=== PATIENT | male | born 1950 | race Hispanic/Latino ===

== ENCOUNTER 2021-09-16 11:49 | Emergency (ER) | payer MEDICARE ==
[2021-09-16] MEDS ORDERED: SODIUM CHLORIDE 0.9% 1000 ML 1,000 ML IV ONE ×2 (12:10→13:55)
--- NOTE | 2021-09-16 12:16 | Emergency Department Report ---
ED General Adult HPI - General Chief complaint: Weakness Stated complaint: COVID LIKE SYMPTOMS Time Seen by Provider: 09/16/21 12:05 Source: patient Mode of arrival: Ambulatory Limitations: No Limitations - History of Present Illness Initial comments: Patient is 70 years old male with history of major depression and vascular dementia. Patient presented to the ER from a local psychiatric facility for evaluation of generalized weakness. Patient also stated that he want to be tested for COVID-19 since he has been having some coughing and congestion r ecently. Patient denied any shortness of breath, fever or chills. He also denied any chest pain. No abdominal pain, nausea or vomiting. He also denied any urinary symptoms. - Related Data Home Medications Medication Instructions Recorded Confirmed Last Taken Cyanocobalamin (Vitamin B-12) 500 mcg PO DAILY 08/18/21 08/18/21 Unknown [Vitamin B-12] Methylphenidate HCl 5 mg PO DAILY 08/18/21 08/18/21 Unknown Tamsulosin [Flomax] 0.4 mg PO QDAY 08/18/21 08/18/21 Unknown amLODIPine 10 mg PO DAILY 08/18/21 08/18/21 Unknown lisinopriL [Zestril TAB] 40 mg PO QDAY 08/18/21 08/18/21 Unknown Previous Rx's Medication Instructions Recorded Last Taken Type Cyanocobalamin [Vitamin B-12] 500 mcg PO QDAY tablet 08/31/21 Unknown Rx Mirtazapine [Remeron 15mg TAB] 45 mg PO QHS 30 Days #30 08/31/21 Unknown Rx Pantoprazole [Protonix TAB] 40 mg PO DAILY tablet 08/31/21 Unknown Rx QUEtiapine [SEROquel] 200 mg PO DAILY 30 Days #30 tablet 08/31/21 Unknown Rx QUEtiapine [SEROquel] 200 mg PO QHS 30 Days #60 tablet 08/31/21 Unknown Rx Sertraline [Zoloft] 100 mg PO QDAY 30 Days #30 tablet 08/31/21 Unknown Rx Venlafaxine Xr [Effexor XR] 225 mg PO QDAY 30 Days #30 cap MDD 08/31/21 Unknown Rx 3 tabs x 75mg = 225mg daily hydrOXYzine PAMOATE [Vistaril] 25 mg PO Q6H PRN 30 Days #60 08/31/21 Unknown Rx capsule traMADoL [Ultram 50 MG tab] 25 mg PO Q4H PRN tablet 08/31/21 Unknown Rx traZODone [Desyrel] 150 mg PO QHS 30 Days #30 tablet 08/31/21 Unknown Rx Allergies Allergy/AdvReac Type Severity Reaction Status Date / Time No Known Allergies Allergy Verified 09/16/21 12:00 ED Review of Systems ROS: Stated complaint: COVID LIKE SYMPTOMS Other details as noted in HPI Comment: All other systems reviewed and negative Constitutional: denies: chills, fever ENT: congestion Respiratory: cough. denies: shortness of breath, SOB with exertion, SOB at rest, wheezing Cardiovascular: denies: chest pain, palpitations Gastrointestinal: denies: abdominal pain, nausea, vomiting Musculoskeletal: denies: back pain Neurological: denies: headache, weakness, numbness, paresthesias, confusion, abnormal gait ED Past Medical Hx - Past Medical History Hx Renal Disease: No Hx Arthritis: No Hx Seizures: No Hx Dementia: No - Social History Smoking Status: Never Smoker - Medications Home Medications: Home Medications Medication Instructions Recorded Confirmed Last Taken Type Cyanocobalamin (Vitamin B-12) 500 mcg PO DAILY 08/18/21 08/18/21 Unknown History [Vitamin B-12] Methylphenidate HCl 5 mg PO DAILY 08/18/21 08/18/21 Unknown History Tamsulosin [Flomax] 0.4 mg PO QDAY 08/18/21 08/18/21 Unknown History amLODIPine 10 mg PO DAILY 08/18/21 08/18/21 Unknown History lisinopriL [Zestril TAB] 40 mg PO QDAY 08/18/21 08/18/21 Unknown History Cyanocobalamin [Vitamin B-12] 500 mcg PO QDAY tablet 08/31/21 Unknown Rx Mirtazapine [Remeron 15mg TAB] 45 mg PO QHS 30 Days #30 08/31/21 Unknown Rx Pantoprazole [Protonix TAB] 40 mg PO DAILY tablet 08/31/21 Unknown Rx QUEtiapine [SEROquel] 200 mg PO DAILY 30 Days #30 tablet 08/31/21 Unknown Rx QUEtiapine [SEROquel] 200 mg PO QHS 30 Days #60 tablet 08/31/21 Unknown Rx Sertraline [Zoloft] 100 mg PO QDAY 30 Days #30 tablet 08/31/21 Unknown Rx Venlafaxine Xr [Effexor XR] 225 mg PO QDAY 30 Days #30 cap MDD 08/31/21 Unknown Rx 3 tabs x 75mg = 225mg daily hydrOXYzine PAMOATE [Vistaril] 25 mg PO Q6H PRN 30 Days #60 08/31/21 Unknown Rx capsule traMADoL [Ultram 50 MG tab] 25 mg PO Q4H PRN tablet 08/31/21 Unknown Rx traZODone [Desyrel] 150 mg PO QHS 30 Days #30 tablet 08/31/21 Unknown Rx ED Physical Exam - General Limitations: No Limitations General appearance: alert, in no apparent distress - Head Head exam: Present: atraumatic, normocephalic, normal inspection - Eye Eye exam: Present: normal appearance - ENT ENT exam: Present: normal exam, normal orophraynx, mucous membranes moist - Neck Neck exam: Present: normal inspection, full ROM. Absent: tenderness, meningismus - Respiratory Respiratory exam: Present: normal lung sounds bilaterally - Cardiovascular Cardiovascular Exam: Present: regular rate, normal rhythm, normal heart sounds - GI/Abdominal GI/Abdominal exam: Present: soft, normal bowel sounds. Absent: distended, tenderness, guarding, rebound, rigid, mass, bruit, pulsatile mass, hernia - Extremities Exam Extremities exam: Present: normal inspection, full ROM, normal capillary refill. Absent: tenderness, pedal edema, joint swelling, calf tenderness - Back Exam Back exam: Present: normal inspection, full ROM. Absent: CVA tenderness (R), CVA tenderness (L) - Neurological Exam Neurological exam: Present: alert, oriented X3, CN II-XII intact - Psychiatric Psychiatric exam: Present: normal mood. Absent: homicidal ideation, suicidal ideation - Skin Skin exam: Present: warm, dry, intact ED Course Vital Signs 09/16/21 09/16/21 11:58 15:52 Temperature 98 F Pulse Rate 92 H 79 Respiratory 20 18 Rate Blood Pressure 84/53 122/66 [Left] O2 Sat by Pulse 100 100 Oximetry ED Medical Decision Making - Lab Data Result diagrams: 09/16/21 12:34 09/16/21 12:34 - EKG Data -: EKG Interpreted by Id EKG shows normal: sinus rhythm Rate: normal - EKG Data Interpretation: no acute changes - Radiology Data Radiology results: report reviewed - Medical Decision Making Patient is 70 years old male with history of major depression and vascular dementia. Patient presented to the ER from a local psychiatric facility for evaluation of generalized weakness. Patient also stated that he want to be tested for COVID-19 since he has been having some coughing and congestion recently. Patient denied any shortness of breath, fever or chills. He also denied any chest pain. No abdominal pain, nausea or vomiting. He also denied any urinary symptoms. Patient found to have a blood pressure of 85/42. Patient received 2 L of normal saline blood pressure improved significantly. Patient found to have a leukocytosis of 16 however I reviewed patient record from few days ago when he was 18,000. Chest x-ray is unremarkable. Patient given prescription for cough and advised to follow-up with his primary doctor in the next 2 to 3 days and return to the ER if he develop any symptoms. Critical care attestation.: If time is entered above; I have spent that time in minutes in the direct care of this critically ill patient, excluding procedure time. ED Disposition Clinical Impression: Acute hypotension, Upper respiratory infection, Acute bronchitis Disposition: 01 HOME / SELF CARE / HOMELESS Is pt being admited?: No Condition: Stable Instructions: Acute Bronchitis (ED), Hypotension, [id number], Acute Bronc hitis, Adult, [id number] Referrals: RAMIRO MANRIQUEZ MD [Primary Care Provider] - 3-5 Days
[2021-09-16 13:22] LABS: Hematocrit 38.4 % (35.5-45.6); Hemoglobin 12.3 gm/dl (11.8-15.2); Mean Corpuscular HGB Conc 32 % (32-34); Mean Corpuscular Volume 88 fl (84-94); Platelet Count 164 K/mm3 (140-440); Red Blood Count 4.35 M/mm3 (3.65-5.03); Red Cell Distribution Width 15.1 % (13.2-15.2)
[2021-09-16 13:40] LABS: Alanine Aminotransferase 10 units/L (7-56); Albumin 4.2 g/dL (3.9-5)
[2021-09-16 13:41] LABS: Bilirubin,Direct < 0.2 mg/dL (0-0.2)
--- NOTE | 2021-09-16 13:42 | XRay Report ---
CHEST 1 VIEW INDICATION: Weakness. COMPARISON: None FINDINGS: Support devices: None. Heart: Within normal limits. Lungs/Pleura: No acute air space or interstitial disease. 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 IMPRESSION: No acute cardiopulmonary process. 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 Correlate with the patient and consider further evaluation with ultrasound thyroid or CT chest with contrast. Signer Name: Leroy Cabral Jr, MD Signed: 09/16/2021 1:38 PM Workstation Name: [id number]
[2021-09-16 14:10] LABS: BUN/Creatinine Ratio 10; Blood Urea Nitrogen 11 mg/dL (9-20); Calcium 8.2 mg/dL (8.4-10.2); Hemolysis Index 3
[2021-09-16 15:42] LABS: Platelet Estimate Consistent w Auto; RBC Morphology Normal; Total Cells Counted 100
[2021-09-16 16:45] VITALS: BP 120/75
== END 2021-09-16 16:51 | disposition home or self-care (01) ==
LOC: ED 11:49
DX: I95.9 Hypotension, unspecified (principal); J06.9 Acute upper respiratory infection, unspecified; J20.9 Acute bronchitis, unspecified
CPT/HCPCS: 36415; 71045; 80048; 80076; 82140; 82550; 84484; 85007; 85025; 96360; 96361; 99284; J7030; Q0162

== ENCOUNTER 2021-09-30 11:45 | Emergency (ER) | payer MEDICARE ==
--- NOTE | 2021-09-30 13:54 | Emergency Department Report ---
HPI - General Chief Complaint: Psych Time Seen by Provider: 09/30/21 13:36 - HPI HPI: Room 12 The patient is a 70-year-old male present with a chief complaint of suicidal ideation. Patient states she is felt suicidal for 1 month. Patient has history of depression and states has been compliant with his medication but has not helped. The patient states that he has had a decreased appetite and difficulty sleeping. Patient denies any attempts at harming himself but states his plan was to "take a bunch of pills." ED Past Medical Hx - Past Medical History Hx Psychiatric Treatment: Yes (Depression) - Surgical History Past Surgical History?: No - Social History Smoking Status: Former Smoker Substance Use Type: Alcohol (Occasional), Other (Klonopin, Xanax) - Medications Home Medications: Home Medications Medication Instructions Recorded Confirmed Last Taken Type Cyanocobalamin (Vitamin B-12) 500 mcg PO DAILY 08/18/21 08/18/21 Unknown History [Vitamin B-12] Methylphenidate HCl 5 mg PO DAILY 08/18/21 08/18/21 Unknown History Tamsulosin [Flomax] 0.4 mg PO QDAY 08/18/21 08/18/21 Unknown History amLODIPine 10 mg PO DAILY 08/18/21 08/18/21 Unknown History lisinopriL [Zestril TAB] 40 mg PO QDAY 08/18/21 08/18/21 Unknown History Cyanocobalamin [Vitamin B-12] 500 mcg PO QDAY tablet 08/31/21 Unknown Rx Mirtazapine [Remeron 15mg TAB] 45 mg PO QHS 30 Days #30 08/31/21 Unknown Rx Pantoprazole [Protonix TAB] 40 mg PO DAILY tablet 08/31/21 Unknown Rx QUEtiapine [SEROquel] 200 mg PO DAILY 30 Days #30 tablet 08/31/21 Unknown Rx QUEtiapine [SEROquel] 200 mg PO QHS 30 Days #60 tablet 08/31/21 Unknown Rx Sertraline [Zoloft] 100 mg PO QDAY 30 Days #30 tablet 08/31/21 Unknown Rx Venlafaxine Xr [Effexor XR] 225 mg PO QDAY 30 Days #30 cap MDD 08/31/21 Unknown Rx 3 tabs x 75mg = 225mg daily hydrOXYzine PAMOATE [Vistaril] 25 mg PO Q6H PRN 30 Days #60 08/31/21 Unknown Rx capsule traMADoL [Ultram 50 MG tab] 25 mg PO Q4H PRN tablet 08/31/21 Unknown Rx traZODone [Desyrel] 150 mg PO QHS 30 Days #30 tablet 08/31/21 Unknown Rx Azithromycin [Zithromax Z-YAIR] 250 mg PO DAILY 1 Days tab 09/16/21 Unknown Rx guaiFENesin [Robitussin] 5 ml PO TID PRN #100 ml 09/16/21 Unknown Rx QUEtiapine [SEROquel] 100 mg PO QHS 30 Days #30 10/01/21 Unknown Rx Venlafaxine [Effexor 37.5mg tab] 37.5 mg PO BID 30 Days #60 tab 10/01/21 Unknown Rx traZODone [Desyrel] 50 mg PO QHS PRN 30 Days #30 tab 10/01/21 Unknown Rx ED Review of Systems ROS: Stated complaint: REQUESTING PSYCH ADMISSION Other details as noted in HPI Constitutional: no symptoms reported Eyes: denies: eye pain ENT: denies: throat pain Respiratory: no symptoms reported Cardiovascular: denies: chest pain Endocrine: no symptoms reported Gastrointestinal: denies: abdominal pain Genitourinary: denies: dysuria Musculoskeletal: denies: back pain Neurological: denies: headache Psychiatric: depression, suicidal thoughts Physical Exam - Physical Exam Vital Signs: Vital Signs 09/30/21 13:29 Temperature 98.7 F Pulse Rate 86 Respiratory 16 Rate Blood Pressure 120/72 [Right] O2 Sat by Pulse 96 Oximetry Physical Exam: GENERAL: The patient is well-developed well-nourished male sitting in chair not appear to be in acute distress HEENT: Normocephalic. Atraumatic. Extraocular motions are intact. Patient has moist mucous membranes. NECK: Supple. Trachea midline CHEST/LUNGS: Clear to auscultation. There is no respiratory distress noted. HEART/CARDIOVASCULAR: Regular. There is no tachycardia. There is no gallop rub or murmur. ABDOMEN: Abdomen is soft, nontender. Patient has normal bowel sounds. There is no abdominal distention. SKIN: There is no rash. There is no edema. There is no diaphoresis. NEURO: The patient is awake, alert, and oriented. The patient is cooperative. The patient has no focal neurologic deficits. The patient has normal speech and gait. GCS 15 MUSCULOSKELETAL: There is no evidence of acute injury. ED Course Vital Signs 09/30/21 13:29 Temperature 98.7 F Pulse Rate 86 Respiratory 16 Rate Blood Pressure 120/72 [Right] O2 Sat by Pulse 96 Oximetry ED Medical Decision Making - Lab Data Result diagrams: 09/30/21 14:35 09/30/21 14:35 Laboratory Tests 09/30/21 09/30/21 09/30/21 14:35 14:35 14:35 WBC 18.7 H RBC 4.55 Hgb 12.7 Hct 39.5 MCV 87 MCH 28 MCHC 32 RDW 15.2 Plt Count 291 Lymph % (Auto) Maintenance Machinist Lymph # (Auto) Maintenance Machinist Add Manual Diff Complete Total Counted 100 Seg Neutrophils % Maintenance Machinist Seg Neuts % (Manual) 1.0 L Band Neutrophils % 1.0 Lymphocytes % (Manual) 58.0 H Reactive Lymphs % (Man) 27.0 Monocytes % (Manual) 9.0 H Eosinophils % (Manual) 0 Basophils % (Manual) 0 Metamyelocytes % 0 Myelocytes % 1.0 Promyelocytes % 2.0 Blast Cells % 1.0 Nucleated RBC % Not Reportable Seg Neutrophils # Man 0.2 L Band Neutrophils # 0.2 Lymphocytes # (Manual) 10.8 H Abs React Lymphs (Man) 5.0 Monocytes # (Manual) 1.7 H Eosinophils # (Manual) 0.0 Basophils # (Manual) 0.0 Metamyelocytes # 0.0 Myelocytes # 0.2 Promyelocytes # 0.4 Blast Cells # 0.7 Hypersegmented Neuts Not Reportable Hyposegmented Neuts Not Reportable Hypogranular Neuts Not Reportable Smudge Cells 2+ Toxic Granulation Not Reportable Toxic Vacuolation Not Reportable Dohle Bodies Not Reportable Pelger-Huet Anomaly Not Reportable Prakash Rods Not Reportable Platelet Estimate Consistent w auto Clumped Platelets Not Reportable Plt Clumps, EDTA Not Reportable Large Platelets Not Reportable Giant Platelets Not Reportable Platelet Satelliting Not Reportable Plt Morphology Comment Not Reportable RBC Morphology Normal Dimorphic RBCs Not Reportable Polychromasia Not Reportable Hypochromasia Not Reportable Poikilocytosis Not Reportable Anisocytosis Not Reportable Microcytosis Not Reportable Macrocytosis Not Reportable Spherocytes Not Reportable Pappenheimer Bodies Not Reportable Sickle Cells Not Reportable Target Cells Not Reportable Tear Drop Cells Not Reportable Ovalocytes Not Reportable Helmet Cells Not Reportable Ryan-Kasigl[place] Bodies Not Reportable [place] Rings Not Reportable Kirk Cells Not Reportable Bite Cells Not Reportable Crenated Cell Not Reportable Elliptocytes Not Reportable Acanthocytes (Spur) Not Reportable Rouleaux Not Reportable Hemoglobin C Crystals Not Reportable Schistocytes Not Reportable Malaria parasites Not Reportable Young Bodies Not Reportable Hem Pathologist Commnt Sent to pathology Sodium Potassium Chloride Carbon Dioxide Anion Gap BUN Creatinine Estimated GFR BUN/Creatinine Ratio Glucose Calcium Total Bilirubin AST ALT Alkaline Phosphatase Total Protein Albumin Albumin/Globulin Ratio Salicylates < 0.3 L Acetaminophen 5.0 L Plasma/Serum Alcohol 09/30/21 09/30/21 14:35 14:35 WBC RBC Hgb Hct MCV MCH MCHC RDW Plt Count Lymph % (Auto) Lymph # (Auto) Add Manual Diff Total Counted Seg Neutrophils % Seg Neuts % (Manual) Band Neutrophils % Lymphocytes % (Manual) Reactive Lymphs % (Man) Monocytes % (Manual) Eosinophils % (Manual) Basophils % (Manual) Metamyelocytes % Myelocytes % Promyelocytes % Blast Cells % Nucleated RBC % Seg Neutrophils # Man Band Neutrophils # Lymphocytes # (Manual) Abs React Lymphs (Man) Monocytes # (Manual) Eosinophils # (Manual) Basophils # (Manual) Metamyelocytes # Myelocytes # Promyelocytes # Blast Cells # Hypersegmented Neuts Hyposegmented Neuts Hypogranular Neuts Smudge Cells Toxic Granulation Toxic Vacuolation Dohle Bodies Pelger-Huet Anomaly Prakash Rods Platelet Estimate Clumped Platelets Plt Clumps, EDTA Large Platelets Giant Platelets Platelet Satelliting Plt Morphology Comment RBC Morphology Dimorphic RBCs Polychromasia Hypochromasia Poikilocytosis Anisocytosis Microcytosis Macrocytosis Spherocytes Pappenheimer Bodies Sickle Cells Target Cells Tear Drop Cells Ovalocytes Helmet Cells Ryan-Kasigl[place] Bodies Quit[place] Rings Kirk Cells Bite Cells Crenated Cell Elliptocytes Acanthocytes (Spur) Rouleaux Hemoglobin C Crystals Schistocytes Malaria parasites Young Bodies Hem Pathologist Commnt Sodium 139 Potassium 5.0 Chloride 101.1 Carbon Dioxide 27 Anion Gap 16 BUN 16 Creatinine 1.8 H Estimated GFR 38 BUN/Creatinine Ratio 9 Glucose 104 H Calcium 9.0 Total Bilirubin 0.40 AST 11 ALT 8 Alkaline Phosphatase 84 Total Protein 7.8 Albumin 4.1 Albumin/Globulin Ratio 1.1 Salicylates Acetaminophen Plasma/Serum Alcohol < 0.01 - Differential Diagnosis Suicidal ideation, depression Critical care attestation.: If time is entered above; I have spent that time in minutes in the direct care of this critically ill patient, excluding procedure time. ED Disposition Clinical Impression: Suicidal ideation Depression Qualifiers: Depression Type: unspecified Qualified Code(s): F32.A - Depression, unspecified Disposition: 01 HOME / SELF CARE / HOMELESS Is pt being admited?: No Does the pt Need Aspirin: No Condition: Stable Instructions: Living With Depression, Persistent Depressive Disorder, Adult, Suicidal Feelings: How to Help Yourself Additional Instructions: OUTPATIENT MENTAL HEALTH RESOURCES [facility], [facility] Barry Pate MD: [address], [address] [place] [address] [place] [address] [facility]: [facility] [address] [place] [address] [place] [address] [phone] [facility]: [facility]: [address] [facility] [address] [facility] [place] [address] [facility] [id number] [facility]: Nba Rush MD: [id number] [facility] [address] [facility] [id number] [facility]: [address] [place], [place] [id number] [phone] [place] CRISIS AND ACCESS LINE: Prescriptions: traZODone [Desyrel] 50 mg PO QHS PRN 30 Days #30 tab PRN Reason: Insomnia Venlafaxine [Effexor 37.5mg tab] 37.5 mg PO BID 30 Days #60 tab QUEtiapine [SEROquel] 100 mg PO QHS 30 Days #30 Referrals: PRIMARY CARE, [Primary Care Provider] - 3-5 Days
[2021-09-30 15:11] LABS: Hematocrit 39.5 % (35.5-45.6); Hemoglobin 12.7 gm/dl (11.8-15.2); Mean Corpuscular HGB Conc 32 % (32-34); Mean Corpuscular Volume 87 fl (84-94); Platelet Count 291 K/mm3 (140-440); Red Blood Count 4.55 M/mm3 (3.65-5.03); Red Cell Distribution Width 15.2 % (13.2-15.2)
[2021-09-30 15:33] LABS: Albumin 4.1 g/dL (3.9-5)
[2021-09-30 17:54] LABS: Band Neutrophils # (Manual) 0.2 K/mm3; Basophils % (Manual) 0 % (0.0-1.8); Eosinophils % (Manual) 0 % (0.0-4.3); Myelocytes # (Manual) 0.2 K/mm3; Platelet Estimate Consistent w Auto; Promyelocytes # (Manual) 0.4 K/mm3; RBC Morphology Normal; Smudge Cells 2+; Total Cells Counted 100
[2021-10-01 07:50] LABS: Amphetamine Screen,Urine Negative; Benzodiazepines Screen,Urine Negative; Bilirubin,Urine NEG (Negative); Blood,Urine NEG (Negative); Cannabinoid Screen,Urine Negative; Cocaine Screen,Urine Negative; Color,Urine Yellow (Yellow); Hyaline Casts,Urine 18 /LPF; Methadone Screen,Urine Negative; Opiate Screen,Urine Negative; Protein,Urine <15 mg/dL mg/dL (Negative); Urobilinogen,Urine < 2.0 mg/dL (<2.0)
--- NOTE | 2021-10-01 09:42 | Consultation ---
History of Present Illness - Reason for Consult Consult date: 10/01/21 Reason for consult: suicidal ideation - History of Present Psychiatric Illness The patient is a 70 year old male with history of depression and alcohol use disorder who presents to the ED with suicidal ideation. In my interview with the patient, he reports ongoing depressed since about one month " I have being depressed after getting off PHP." The patient reports being on Trazodone, Seroquel and Remeron however, medication compliant is unknown. The patient endorses suicidal ideation with no plan . He denies Hallucinations. PAST PSYCHIATRIC HISTORY: Diagnoses:Depression, Alcohol use disorder Suicide attempts or Self-harm behavior: Yes Prior psychiatric hospitalizations: Yes Substance Abuse history: Alcohol Previous psychiatric medications tried: Unable to recall Outpatient treatment: Yes PAST MEDICAL HISTORY: unknown Family Psychiatric History: None reported or documented SOCIAL HISTORY Marital Status: single Living Arrangements: Lives with nephew Employment Status: Disable- SSI Access to guns/weapons: Denies Education:GED History of Abuse:Denies Legal History: Denies REVIEW OF SYSTEMS Constitutional: Negative for weight loss ENT: Negative for stridor Respiratory: Negative for cough or hemoptysis All other systems reviewed and are negative MENTAL STATUS EXAMINATION General Appearance and Behavior: Age appropriate, good hygiene, wearing appropriate clothes. calm, cooperative Cooperation: Cooperative Psychomotor Behavior: Psychomotor normal Mood: depressed Affect and affective range: congruent with stated mood Thought Process: goal directed Thought Content: suicidal Speech: normal tone and pace Suicidal Ideation: Yes Homicidal Ideation: Denies Hallucinations: Deniesl Delusions:Denies Impulse Control: Limited Insight and Judgment: Limited insight and poor judgment Memory: Limited Attention: distracted Orientation: a/o x 3 Assessment (1)Major depressive disorder, recurrent (2) Current Visit: Yes Status: Acute Treatment plan d/c 1013 Continue previous prescribed meds Risks, benefits and alternatives of medications discussed with the patient, questions answered and consent obtained from patient. PSYCHOTHERAPY: Supportive psychotherapy provided MEDICAL: Per primary team DELIRIUM PRECAUTIONS: Please re-orient patient frequently, keep lights on during the day, and minimize benzodiazepines and opiates as these medications could worsen patient's confusion. PROCESS WORKER: Per medical team DISPOSITION: Do not Recommend acute inpatient psychiatric hospitalization. The patient understands that he should seek immediate assistance if SI/HI return The patient is to follow up with outpatient psych in 7 to 14 days upon discharge. Accounting System Expert will provide patient with out patient resources. He is to abstain from all illicit drug use. Will sign off. Thank you for the consult. Please contact with any questions and/or concerns. Case staffed with Dr. Contreras Medications and Allergies Allergies Allergy/AdvReac Type Severity Reaction Status Date / Time No Known Allergies Allergy Verified 09/30/21 13:35 Home Medications Medication Instructions Recorded Confirmed Last Taken Type Cyanocobalamin (Vitamin B-12) 500 mcg PO DAILY 08/18/21 08/18/21 Unknown History [Vitamin B-12] Methylphenidate HCl 5 mg PO DAILY 08/18/21 08/18/21 Unknown History Tamsulosin [Flomax] 0.4 mg PO QDAY 08/18/21 08/18/21 Unknown History amLODIPine 10 mg PO DAILY 08/18/21 08/18/21 Unknown History lisinopriL [Zestril TAB] 40 mg PO QDAY 08/18/21 08/18/21 Unknown History Cyanocobalamin [Vitamin B-12] 500 mcg PO QDAY tablet 08/31/21 Unknown Rx Mirtazapine [Remeron 15mg TAB] 45 mg PO QHS 30 Days #30 08/31/21 Unknown Rx Pantoprazole [Protonix TAB] 40 mg PO DAILY tablet 08/31/21 Unknown Rx QUEtiapine [SEROquel] 200 mg PO DAILY 30 Days #30 tablet 08/31/21 Unknown Rx QUEtiapine [SEROquel] 200 mg PO QHS 30 Days #60 tablet 08/31/21 Unknown Rx Sertraline [Zoloft] 100 mg PO QDAY 30 Days #30 tablet 08/31/21 Unknown Rx Venlafaxine Xr [Effexor XR] 225 mg PO QDAY 30 Days #30 cap MDD 08/31/21 Unknown Rx 3 tabs x 75mg = 225mg daily hydrOXYzine PAMOATE [Vistaril] 25 mg PO Q6H PRN 30 Days #60 08/31/21 Unknown Rx capsule traMADoL [Ultram 50 MG tab] 25 mg PO Q4H PRN tablet 08/31/21 Unknown Rx traZODone [Desyrel] 150 mg PO QHS 30 Days #30 tablet 08/31/21 Unknown Rx Azithromycin [Zithromax Z-YAIR] 250 mg PO DAILY 1 Days tab 12/29/21 Unknown Rx guaiFENesin [Robitussin] 5 ml PO TID PRN #100 ml 09/16/21 Unknown Rx QUEtiapine [SEROquel] 100 mg PO QHS 30 Days #30 10/01/21 Unknown Rx Venlafaxine [Effexor 37.5mg tab] 37.5 mg PO BID 30 Days #60 tab 10/01/21 Unknown Rx traZODone [Desyrel] 50 mg PO QHS PRN 30 Days #30 tab 10/01/21 Unknown Rx Mental Status Exam - Vital signs Last Vital Signs Temp 98.4 F 09/30/21 20:33 Pulse 87 09/30/21 20:33 Resp 18 09/30/21 20:33 BP 105/57 09/30/21 20:33 Pulse Ox 96 09/30/21 20:33 Results Result Diagrams: 09/30/21 14:35 09/30/21 14:35 Abnormal lab results 09/30/21 09/30/21 09/30/21 Range/Units 14:35 14:35 14:35 WBC 18.7 H (4.5-11.0) K/mm3 Seg Neuts % (Manual) 1.0 L (40.0-70.0) % Lymphocytes % (Manual) 58.0 H (13.4-35.0) % Monocytes % (Manual) 9.0 H (0.0-7.3) % Seg Neutrophils # Man 0.2 L (1.8-7.7) K/mm3 Lymphocytes # (Manual) 10.8 H (1.2-5.4) K/mm3 Monocytes # (Manual) 1.7 H (0.0-0.8) K/mm3 Creatinine (0.8-1.3) mg/dL Glucose (75-100) mg/dL Urine WBC (Auto) (0.0-6.0) /HPF Salicylates < 0.3 L (2.8-20.0) mg/dL Acetaminophen 5.0 L (10.0-30.0) ug/mL 09/30/21 10/01/21 Range/Units 14:35 Unknown WBC (4.5-11.0) K/mm3 Seg Neuts % (Manual) (40.0-70.0) % Lymphocytes % (Manual) (13.4-35.0) % Monocytes % (Manual) (0.0-7.3) % Seg Neutrophils # Man (1.8-7.7) K/mm3 Lymphocytes # (Manual) (1.2-5.4) K/mm3 Monocytes # (Manual) (0.0-0.8) K/mm3 Creatinine 1.8 H (0.8-1.3) mg/dL Glucose 104 H (75-100) mg/dL Urine WBC (Auto) 17.0 H (0.0-6.0) /HPF Salicylates (2.8-20.0) mg/dL Acetaminophen (10.0-30.0) ug/mL All other labs normal.
[2021-10-01 10:20] VITALS: BP 118/76
--- NOTE | 2021-10-01 10:39 | Emergency Department Report ---
Blank Doc - Documentation Documentation: Patient is resting. He had been seen by psychiatric services and cleared. It was not felt that he represented a risk of self-harm. There is no indication for admission. He was discharged and referred for outpatient follow-up.
== END 2021-10-01 11:05 | disposition home or self-care (01) ==
LOC: EEVIPCON 11:45 → ED 11:45
DX: R45.851 Suicidal ideations (principal); F32.A Depression, unspecified; Z87.891 Personal history of nicotine dependence; F10.20 Alcohol dependence, uncomplicated; Z79.899 Other long term (current) drug therapy
CPT/HCPCS: 36415; 80053; 80307; 80320; 81001; 85007; 85025; 87086; 88184; 88185; 99284; G0480